=== PATIENT | female | born 1950 | race Caucasian/White ===

== ENCOUNTER 2019-03-09 13:50 | Outpatient (RCR) | payer SELFPAY | END 2019-03-27 | LOC: M CR 13:50 | PROVIDERS: ATTEND Internal Medicine | DX: Z76.89 Persons encountering health services in other specified circumstances (principal) ==

== ENCOUNTER 2019-04-08 10:03 | Outpatient (RCR) | payer SELFPAY | END 2019-04-26 | LOC: M CR 10:03 | PROVIDERS: ATTEND Internal Medicine | DX: Z76.89 Persons encountering health services in other specified circumstances (principal) ==